=== PATIENT | male | born 1950 | race Caucasian/White ===

== ENCOUNTER → 2017-10-30 | Outpatient (CLI) | payer OTHER, SELFPAY ==
[~2017-10-30] MED LIST: ALBUTEROL2.5 MG/31 INH; ASPIR 8181 M1 PO; ASPIR 8181 MG PO; ATIVAN0.5 MG PO; CARVEDILOL3.125 MG PO; CLARITIN10 MG PO; DALIRESP500 MCG PO; GABAPENTIN 100100 MG PO; IPRAT-ALBUT 0.5-3 ML INH; LASIX 40 MG TAB40 M2 PO; LEVAQUIN 500 M500 M2 PO; LEVAQUIN 750 M750 MG PO; LEVEMIR SUBQ; LEVOTHYROXIN0.075 MG PO; LEXAPRO20 MG PO; LIPITOR40 MG PO; LISINOPRIL5 MG PO; MUCINEX600 MG PO; NICOTINE TRANSD21 M1 TOP; OLANZAPINE7.5 MG PO; PAROXETINE HCL40 MG PO; PAXIL10 MG PO; PREDNISONE 10 M10 MG PO; ROXICODONE5 M2 PO; SINEMET 25-1001 EAC1 PO; SINGULAIR 10 MG10 M1 PO; SINGULAIR 10 MG10 MG PO; SPIRIVA INH; SYMBICORT80 MCG/4.1 INH; VENTOLIN HFA 1818 GM INH; WELLBUTRIN SR150 MG PO; WELLBUTRIN XL300 MG PO; ZITHROMAX500 MG PO
[2017-10-30 15:04] LABS: ANION GAP 9 mmol/L (7-16); BUN 21 mg/dL (7-18); CALCIUM 8.7 mg/dL (8.5-10.1); CHLORIDE 105 mmol/L (98-107); CO2 28 mmol/L (21-32); CREATININE 1.3 mg/dL (0.6-1.3); GLUCOSE 104 mg/dL (70-99); POTASSIUM 4.1 mmol/L (3.5-5.1); SODIUM 142 mmol/L (136-145)
[2017-10-30 15:12] LABS: ALBUMIN 3.4 g/dL (3.4-5.0); ALKALINE PHOSPHATASE 95 U/L (46-116); SGOT 14 U/L (15-37); SGPT 20 U/L (30-65); TOTAL BILIRUBIN 0.2 mg/dL (<0.1-1.0); TOTAL PROTEIN 7.2 g/dL (6.4-8.2); TROPONIN-I LEVEL <0.06 ng/mL (<0.06)
== END ==
LOC: M.LAB 14:34
PROVIDERS: Family Medicine
DX: R94.31 Abnormal electrocardiogram [ECG] [EKG] (principal)

== ENCOUNTER 2017-11-04 08:09 | Inpatient (IN) | payer OTHER ==
[~2017-11-04] VITALS: Ht 167.6 cm; Wt 78.5 kg
[~2017-11-04 08:09] MED LIST changes: -ALBUTEROL2.5 MG/31 INH; -ASPIR 8181 MG PO; -CARVEDILOL3.125 MG PO; -DALIRESP500 MCG PO; -IPRAT-ALBUT 0.5-3 ML INH; -LASIX 40 MG TAB40 M2 PO; -LEVAQUIN 750 M750 MG PO; -LISINOPRIL5 MG PO; -MUCINEX600 MG PO; -PAROXETINE HCL40 MG PO; -SINGULAIR 10 MG10 MG PO; -WELLBUTRIN XL300 MG PO; -ZITHROMAX500 MG PO
[2017-11-04 08:12] VITALS: BP 133/92
[2017-11-04] MEDS ORDERED: WELLBUTRIN XL300 MG PO (08:26)
[2017-11-04] MEDS ORDERED: OLANZAPINE7.5 MG PO (08:26)
[2017-11-04] MEDS ORDERED: CLARITIN10 MG PO (08:26)
[2017-11-04] MEDS ORDERED: SYMBICORT80 MCG/4.1 INH (08:27)
[2017-11-04] MEDS ORDERED: PAROXETINE HCL40 MG PO (08:27)
[2017-11-04] MEDS ORDERED: VENTOLIN HFA 1818 GM INH (08:28)
[2017-11-04] MEDS ORDERED: ALBUTEROL2.5 MG/31 INH (08:29)
[2017-11-04] MEDS ORDERED: SPIRIVA INH (08:29)
[2017-11-04] MEDS ORDERED: SINGULAIR 10 MG10 MG PO (08:30)
[2017-11-04 08:50] LABS: ABSOLUTE BASOPHILS 0.1 thou/uL (0.0-0.2); ABSOLUTE EOSINOPHILS 0.1 thou/uL (0.0-0.7); ABSOLUTE LYMPHOCYTES 1.1 thou/uL (0.8-5.3); ABSOLUTE MONOCYTES 0.5 thou/uL (0.0-1.2); ABSOLUTE NEUTROPHILS 7.5 thou/uL (1.6-8.1); BASOPHILS 1.1 %; EOSINOPHILS 0.6 %; HEMOGLOBIN 13.7 gm/dL (14.0-18.0); LYMPHOCYTES 11.6 %; MCH 29.8 pg (26.0-34.0); MCHC 33.3 g/dL (28.0-37.0); MCV 89.3 fL (80.0-100.0); MONOCYTES 5.2 %; MPV 8.8 fl. (7.2-11.1); NUCLEATED RBCS 0 /100WBC; PLATELET COUNT* 284 thou/uL (150-400); POLYS 81.5 %; RBC 4.59 mil/uL (4.50-6.00); RDW-CV 15.1 % (10.5-14.5); WBC 9.2 thou/uL (4.0-11.0)
[2017-11-04 08:57] LABS: INR 1.1; PROTIME 10.8 Seconds (9.20-11.50)
[2017-11-04 08:58] LABS: ANION GAP 7 mmol/L (7-16); BUN 15 mg/dL (7-18); CALCIUM 8.7 mg/dL (8.5-10.1); CHLORIDE 107 mmol/L (98-107); CO2 28 mmol/L (21-32); CREATININE 1.2 mg/dL (0.6-1.3); GLUCOSE 111 mg/dL (70-99); POTASSIUM 4.2 mmol/L (3.5-5.1); SODIUM 142 mmol/L (136-145)
[2017-11-04 09:08] LABS: ALBUMIN 3.4 g/dL (3.4-5.0); ALKALINE PHOSPHATASE 99 U/L (46-116); LIPASE 116 U/L (73-393); NT-PRO BRAIN NAT PEPTIDE 2860 pg/mL (<300); SGOT 20 U/L (15-37); SGPT 30 U/L (30-65); TOTAL BILIRUBIN 0.4 mg/dL (<0.1-1.0); TOTAL PROTEIN 7.2 g/dL (6.4-8.2); TROPONIN-I LEVEL <0.06 ng/mL (<0.06)
[2017-11-04 10:49] LABS: INFLUENZA A ANTIGEN None Detected (None Detect); INFLUENZA B ANTIGEN None Detected (None Detect)
[2017-11-04 11:30] VITALS: BP 130/86
[2017-11-04 11:32] VITALS: BP 133/92
[2017-11-04 13:50] LABS: BE -2.2 mmol/L (-2 to +3); HCO3 21.6 mmol/L (22.0-26.0); PCO2 34.5 mmHg (35.0-45.0); pH 7.415 (7.340-7.450)
--- NOTE | 2017-11-04 16:06 | 2DMMODE ---
[place] [address] 2 D/M-MODE ECHOCARDIOGRAM Name: ANDREW MCCARTY Room: [address] IN [facility]#: [id number] Admission: 11/04/17 Attend Phys: Erasmo Staton, Discharge: Date of : 50 Date of Service: 11/04/17 1606 Report #: [id number] THIS REPORT FOR: //name// APPROVED REPORT Study performed: 11/04/2017 12:28:57 EXAM: Comprehensive 2D, Doppler, and color-flow Echocardiogram Patient Location: In-Patient Room #: [facility] Status: routine BSA: 1.88 HR: 107 bpm BP: 133/92 mmHg Rhythm: NSR Other Information Study Quality: Good Indications Congestive Heart Failure 2D Dimensions LVEF(%): 41.97 (>50%) IVSd: 12.08 (7-11mm) LVOT Diam: 21.21 (18-24mm) LVDd: 62.13 mm PWd: 10.01 (7-11mm) Ascending Ao: 36.06 (22-36mm) LVDs: 49.06 (25-40mm) Aortic Root: 39.00 mm Doll's LVEF: 41.97 % Volumes Left Atrial Volume (Systole) LA ESV Index: 33.50 mL/m2 Aortic Valve AoV Peak Niko.: 1.34 m/s AO Peak Gr.: 7.16 mmHg LVOT Max P.14 mmHg AO Mean Gr.: 4.48 mmHg LVOT Mean P.98 mmHg LVOT Max V: 1.02 m/s AO V2 VTI: 21.46 cm LVOT Mean V: 0.64 m/s KEYA (VTI): 2.79 cm2 LVOT V1 VTI: 16.95 cm Mitral Valve E/A Ratio: 1.07 [place] [address] 2 D/M-MODE ECHOCARDIOGRAM Name: ANDREW MCCARTY Room: [address] IN [facility]#: [id number] Admission: 11/04/17 Attend Phys: Erasmo Staton, Discharge: Date of : 50 Date of Service: 11/04/17 1606 Report #: [id number] MV Decel. Time: 240.59 ms MV E Max Niko.: 1.16 m/s MV PHT: 69.77 ms MVA (PHT): 3.15 cm2 TDI E/Lateral E': 8.92 E/Medial E': 12.89 Medial E' Niko.: 0.09 m/s Lateral E' Niko.: 0.13 m/s Pulmonary Valve PV Peak Niko.: 0.78 m/s PV Peak Gr.: 2.45 mmHg Left Ventricle The left ventricle is normal size. There is moderate global hypokinesis Mild concentric left ventricular hypertrophy. Left ventricular systolic function is moderately decreased. LVEF is 30-35%. Transmitral Doppler flow pattern suggests impaired LV relaxation. Right Ventricle The right ventricle is normal size. The right ventricular systolic function is normal. Atria Left atrium is mildly dilated. The right atrium size is normal. Aortic Valve The aortic valve is normal in structure. No aortic regurgitation is present. There is no aortic valvular stenosis. Mitral Valve The mitral valve is normal in structure. Moderate mitral regurgitation. No evidence of mitral valve stenosis. Tricuspid Valve The tricuspid valve is normal in structure. Unable to assess PA pressure. Trace tricuspid regurgitation. Pulmonic Valve The pulmonary valve is normal in structure. There is no pulmonic valvular regurgitation. Great Vessels The aortic root is normal in size. IVC is [place] [address] 2 D/M-MODE ECHOCARDIOGRAM Name: ANDREW MCCARTY Hubert Room: [address] IN [facility]#: [id number] Admission: 11/04/17 Attend Phys: Erasmo Staton, Discharge: Date of : 50 Date of Service: 11/04/17 1606 Report #: [id number] collapses with >50% inspiration Pericardium There is no pericardial effusion. <Conclusion> The left ventricle is normal size. Mild concentric left ventricular hypertrophy. Left ventricular systolic function is moderately decreased. LVEF is 30-35%. Transmitral Doppler flow pattern suggests impaired LV relaxation. There is moderate global hypokinesis Left atrium is mildly dilated. Moderate mitral regurgitation. <ELECTRONICALLY SIGNED> By: Arben Bolaños MD, FACC 11/04/17 1606 1606 1606 Arben Bolaños MD, FACC /INF
--- NOTE | 2017-11-04 16:35 | EKG ---
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 : 1950 Requested By: Deondre Hood Order Number: [id number] MD: Arben Bolaños Measurements Intervals [place] Rate: 98 P: 60 [place]: 167 QRS: 34 QRSD: 94 T: 55 QT: 343 QTc: 438 Interpretive Statements Sinus rhythm Possible left atrial enlargement Nonspecific T abnormalities, lateral leads Compared to ECG 02/09/2016 14:48:54 T-wave abnormality now present Sinus tachycardia no longer present Electronically Signed On 11-04-2017 16:35:41 ENGINEERING COORDINATOR by Arben Bolaños [email or web address] <ELECTRONICALLY SIGNED> By: Arben Bolaños MD, FACC 11/04/17 1635 0815 Arben Bolaños MD, FAC /EPI
[2017-11-04 17:18] VITALS: BP 135/86
[2017-11-04 22:39] VITALS: BP 115/69
[2017-11-05 05:23] LABS: HEMOGLOBIN 13.3 gm/dL (14.0-18.0); MCH 30.1 pg (26.0-34.0); MCHC 33.2 g/dL (28.0-37.0); MCV 90.7 fL (80.0-100.0); MPV 9.1 fl. (7.2-11.1); NUCLEATED RBCS 0 /100WBC; PLATELET COUNT* 299 thou/uL (150-400); RBC 4.42 mil/uL (4.50-6.00)
[2017-11-05 05:43] LABS: ANION GAP 14 mmol/L (7-16); BUN 27 mg/dL (7-18); CALCIUM 8.7 mg/dL (8.5-10.1); CHLORIDE 105 mmol/L (98-107); CO2 22 mmol/L (21-32); CREATININE 1.7 mg/dL (0.6-1.3); GLUCOSE 171 mg/dL (70-99); NT-PRO BRAIN NAT PEPTIDE 6005 pg/mL (<300); POTASSIUM 4.9 mmol/L (3.5-5.1); SODIUM 141 mmol/L (136-145); TROPONIN-I LEVEL <0.06 ng/mL (<0.06)
[2017-11-05 06:33] LABS: ABSOLUTE LYMPHOCYTES 1.2 thou/uL (0.8-5.3); ABSOLUTE MONOCYTES 0.2 thou/uL (0.0-1.2); ABSOLUTE NEUTROPHILS 10.6 thou/uL (1.6-8.1); PLATELET ESTIMATE ADEQUATE
[2017-11-05 07:30] VITALS: BP 145/86
[2017-11-05 15:56] VITALS: BP 164/89
[2017-11-06 04:35] LABS: ABSOLUTE LYMPHOCYTES 0.6 thou/uL (0.8-5.3); ABSOLUTE MONOCYTES 0.3 thou/uL (0.0-1.2); ABSOLUTE NEUTROPHILS 15.4 thou/uL (1.6-8.1); BASOPHILS 0.2 %; HEMATOCRIT 38.6 % (42.0-52.0); HEMOGLOBIN 12.6 gm/dL (14.0-18.0); LYMPHOCYTES 3.9 %; MCH 29.5 pg (26.0-34.0); MCHC 32.6 g/dL (28.0-37.0); MCV 90.5 fL (80.0-100.0); MONOCYTES 1.9 %; MPV 9.2 fl. (7.2-11.1); NUCLEATED RBCS 0 /100WBC; PLATELET COUNT* 296 thou/uL (150-400); RBC 4.27 mil/uL (4.50-6.00); RDW-CV 15.1 % (10.5-14.5); WBC 16.3 thou/uL (4.0-11.0)
[2017-11-06 05:06] LABS: ALBUMIN 3.3 g/dL (3.4-5.0); ALKALINE PHOSPHATASE 86 U/L (46-116); ANION GAP 7 mmol/L (7-16); BUN 42 mg/dL (7-18); CALCIUM 8.4 mg/dL (8.5-10.1); CHLORIDE 104 mmol/L (98-107); CO2 28 mmol/L (21-32); CREATININE 1.9 mg/dL (0.6-1.3); GLUCOSE 147 mg/dL (70-99); POTASSIUM 5.2 mmol/L (3.5-5.1); SGOT 35 U/L (15-37); SGPT 49 U/L (30-65); SODIUM 139 mmol/L (136-145); TOTAL BILIRUBIN 0.3 mg/dL (<0.1-1.0); TOTAL PROTEIN 6.8 g/dL (6.4-8.2)
[2017-11-06 05:36] LABS: CHOLESTEROL 252 mg/dL (<200); HDL CHOLESTEROL 52 mg/dL (>40); LDL CHOLESTEROL 185 mg/dL (<100); SERUM ASSESSMENT Clear; TC:HDL 4.8 Ratio (Not establshd); TRIGLYCERIDE 79 mg/dL (<150); VLDL 16 mg/dL (<40)
[2017-11-06 08:05] VITALS: BP 135/93
[2017-11-06 16:04] VITALS: BP 121/86
--- NOTE | 2017-11-06 17:48 | CON ---
[address] [address] CONSULTATION Name: ANDREW MCCARTY Room: [address] IN .R.#: [id number] Admission: 11/04/17 Attend Phys: Erasmo Staton MD Discharge: Date of : 50 Report #: [id number] THIS REPORT FOR: //name// CC: Erasmo Lee DO DATE OF SERVICE: 11/05/2017 CARDIOLOGY CONSULTATION HISTORY OF PRESENT ILLNESS: The patient is a 67-year-old white male with COPD, who I was asked to see in the hospital after he complained of being short of breath. The patient has been a smoker for years, previously 2 packs of cigarettes a day. He is now down to less than 1/2 pack of cigarettes a day. He continues to smoke, has chronic cough, chronic shortness of breath and is on oxygen and nebulizer at home. He has no history of heart disease. He states he did have a treadmill about 2 years ago at [facility]. He was actually admitted here to [place] in 2016 with shortness of breath and a cough. The patient states that he has now been short of breath for the past week. He has been coughing, running a fever, could not sleep at night. He has been using his nebulizer and oxygen. He has also had some chest numbness. He feels fatigued, lightheaded. He has had no syncope. Finally, he came to the hospital yesterday and was admitted. PAST MEDICAL HISTORY: Significant for hemorrhoid surgery, all of his teeth have been removed. No history of hypertension, diabetes, hyperlipidemia. He has a history of depression, has been on antipsychotic medications in the past. MEDICATIONS: His current medications at home consists of ___loratadine, Wellbutrin, Paxil, Symbicort, Ventolin, DuoNeb treatments, Spiriva, Singulair. He previous was on Lipitor. ALLERGIES: He has no known drug allergies. FAMILY HISTORY: He did not know his family history. SOCIAL HISTORY: He is . 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 He used to drink heavily, no longer drinks alcohol. REVIEW OF SYSTEMS: No history of stroke. He has had a peptic ulcer years ago. No history of liver disease, kidney disease, cancer or chronic skin condition. PHYSICAL EXAMINATION: GENERAL: Revealed a middle-aged male, appeared in mild respiratory distress, [place] [address] CONSULTATION Name: ANDREW MCCARTY Room: [address]#: [id number] Admission: 11/04/17 Attend Phys: Erasmo Staton MD Discharge: Date of : 50 Report #: [id number] VITAL SIGNS: Blood pressure 130/70, pulse is 90, he is afebrile. HEENT: He was anicteric. Conjunctivae pink. Mucous members moist. NECK: Neck veins nondistended. No carotid bruits. Neck supple. CHEST: Revealed expiratory wheezes bilaterally. CARDIOVASCULAR: Distant heart sounds, regular rate and rhythm. No significant murmur. ABDOMEN: Soft. EXTREMITIES: Had no edema. Dorsalis pedis pulse 1+ bilaterally. SKIN: Cool and dry. NEUROLOGIC: Nonfocal. LYMPH: No adenopathy. MUSCULOSKELETAL: No joint effusion. His ECG on admission yesterday showed a sinus rhythm, nonspecific T-wave changes. He had an echocardiogram done yesterday that showed left ventricular hypertrophy, ejection fraction 35%, left atrial enlargement, moderate mitral regurgitation. His x-rays, he had a portable chest x-ray on admission yesterday that showed cardiomegaly, left lower lobe infiltrate, mild interstitial infiltrates suggestive of edema. LABORATORY WORK: Sodium 141, BUN 27, creatinine 1.7, glucose 171. Liver function studies were normal. Troponin 0.06. BNP 6005. TSH 7.2. White blood cell count 12.0, hemoglobin 13.3. IMPRESSION AND RECOMMENDATIONS: 1. Chronic obstructive pulmonary disease. 2. Tobacco abuse. 3. Cardiomyopathy, reason unclear. No evidence of ischemia. Recommend beta-john, ROSALIE, Aldactone and Lasix. 4. Tobacco abuse. 5. Previous history of alcohol abuse. 6. History of depression. 7. Chronic kidney disease. <ELECTRONICALLY SIGNED> By: Steve Brown MD, [facility] 11/06/17 1748 1312 [id number] Brown MD, [facility] /nt
[2017-11-06 20:00] VITALS: BP 130/91
[2017-11-07 00:07] VITALS: BP 150/90
[2017-11-07 07:50] VITALS: BP 136/83
[2017-11-07 10:46] VITALS: BP 136/83
[2017-11-07 15:27] VITALS: BP 136/83
[2017-11-07 15:34] VITALS: BP 167/79
[2017-11-07 20:20] VITALS: BP 146/100
[2017-11-08 06:16] LABS: HEMATOCRIT 37.3 % (42.0-52.0); HEMOGLOBIN 12.2 gm/dL (14.0-18.0); MCH 29.7 pg (26.0-34.0); MCHC 32.7 g/dL (28.0-37.0); MCV 90.7 fL (80.0-100.0); MPV 9.3 fl. (7.2-11.1); RBC 4.11 mil/uL (4.50-6.00); RDW-CV 14.9 % (10.5-14.5); WBC 11.5 thou/uL (4.0-11.0)
[2017-11-08 07:30] VITALS: BP 127/85
[2017-11-08 08:35] VITALS: BP 136/83
[2017-11-08] MEDS ORDERED: LISINOPRIL5 MG PO (12:35)
[2017-11-08] MEDS ORDERED: LASIX 40 MG TAB40 M2 PO (12:36)
[2017-11-08] MEDS ORDERED: CARVEDILOL3.125 MG PO (12:36)
[2017-11-08 16:00] VITALS: BP 125/97
[2017-11-08 20:15] VITALS: BP 128/82
[2017-11-09 00:42] VITALS: BP 130/92
[2017-11-09 08:30] VITALS: BP 124/91
[2017-11-09 08:37] VITALS: BP 124/91
[2017-11-09] MEDS ORDERED: PREDNISONE 10 M10 MG PO (15:44)
[2017-11-09] MEDS ORDERED: ZITHROMAX500 MG PO (15:45)
== END 2017-11-09 16:12 | disposition home or self-care (01) | DRG 177 ==
LOC: M.ERS 08:09 → M.3W 09:28 → M.TBA-ER 09:28 → M.3W 11:20
PROVIDERS: Emergency Medicine; Internal Medicine; ADMIT Internal Medicine
PROC: B24BZZ4 Ultrasonography of Heart with Aorta, Transesophageal (ICD-10-PCS; principal; 2017-11-04)
DX: J69.0 Pneumonitis due to inhalation of food and vomit (principal); J96.20 Acute and chronic respiratory failure, unspecified whether with hypoxia or hypercapnia; J44.1 Chronic obstructive pulmonary disease with (acute) exacerbation; I42.9 Cardiomyopathy, unspecified; J44.0 Chronic obstructive pulmonary disease with (acute) lower respiratory infection; J15.6 Pneumonia due to other Gram-negative bacteria; N18.9 Chronic kidney disease, unspecified; F32.9 Major depressive disorder, single episode, unspecified; F41.9 Anxiety disorder, unspecified; E03.9 Hypothyroidism, unspecified; F17.210 Nicotine dependence, cigarettes, uncomplicated; E78.00 Pure hypercholesterolemia, unspecified; E87.5 Hyperkalemia; Z79.899 Other long term (current) drug therapy

== ENCOUNTER → 2017-12-02 | Outpatient (CLI) | payer OTHER ==
[~2017-12-02] MED LIST changes: +ALBUTEROL2.5 MG/31 INH; +ASPIR 8181 MG PO; +CARVEDILOL3.125 MG PO; +DALIRESP500 MCG PO; +IPRAT-ALBUT 0.5-3 ML INH; +LASIX 40 MG TAB40 M2 PO; +LEVAQUIN 750 M750 MG PO; +LISINOPRIL5 MG PO; +MUCINEX600 MG PO; +PAROXETINE HCL40 MG PO; +SINGULAIR 10 MG10 MG PO; +WELLBUTRIN XL300 MG PO; +ZITHROMAX500 MG PO
== END ==
LOC: M.RAD 09:27
DX: J18.9 Pneumonia, unspecified organism (principal); Z86.79 Personal history of other diseases of the circulatory system

== ENCOUNTER 2018-07-16 14:00 | Inpatient (IN) | payer OTHER ==
[~2018-07-16] VITALS: Ht 172.7 cm; Wt 77.1 kg
[~2018-07-16 14:00] MED LIST changes: -ASPIR 8181 MG PO; -DALIRESP500 MCG PO; -IPRAT-ALBUT 0.5-3 ML INH; -LEVAQUIN 750 M750 MG PO; -MUCINEX600 MG PO
[2018-07-16 14:12] VITALS: BP 78/57
[2018-07-16] MEDS ORDERED: ASPIR 8181 MG PO (14:17)
[2018-07-16 14:23] LABS: HEMATOCRIT 42.1 % (42.0-52.0); HEMOGLOBIN 13.8 gm/dL (14.0-18.0); MCH 30.8 pg (26.0-34.0); MCHC 32.8 g/dL (28.0-37.0); MPV 8.4 fl. (7.2-11.1); NUCLEATED RBCS 0 /100WBC; PLATELET COUNT* 349 thou/uL (150-400); RBC 4.47 mil/uL (4.50-6.00); RDW-CV 14.8 % (10.5-14.5); WBC 20.9 thou/uL (4.0-11.0)
[2018-07-16 14:33] LABS: APTT 25.9 Seconds (25.0-31.3); PROTIME 9.8 Seconds (9.20-11.50)
[2018-07-16 14:40] LABS: ANION GAP 9 mmol/L (7-16); BUN 21 mg/dL (7-18); CALCIUM 8.9 mg/dL (8.5-10.1); CHLORIDE 98 mmol/L (98-107); CO2 30 mmol/L (21-32); CREATININE 1.3 mg/dL (0.6-1.3); GLUCOSE 102 mg/dL (70-99); POTASSIUM 4.4 mmol/L (3.5-5.1); SODIUM 137 mmol/L (136-145)
[2018-07-16 14:54] LABS: ALKALINE PHOSPHATASE 71 U/L (46-116); LIPASE 229 U/L (73-393); MAGNESIUM 2.1 mg/dL (1.8-2.4); NT-PRO BRAIN NAT PEPTIDE 7717 pg/mL (<300); SGOT 33 U/L (15-37); SGPT 47 U/L (30-65); TOTAL BILIRUBIN 0.4 mg/dL (<0.1-1.0); TOTAL PROTEIN 6.6 g/dL (6.4-8.2); TROPONIN-I LEVEL <0.06 ng/mL (<0.06)
[2018-07-16 15:07] LABS: ABSOLUTE LYMPHOCYTES 0.2 thou/uL (0.8-5.3); ABSOLUTE NEUTROPHILS 19.6 thou/uL (1.6-8.1); PLATELET ESTIMATE ADEQUATE
[2018-07-16 16:47] VITALS: BP 98/48
[2018-07-16 17:17] VITALS: BP 113/79
--- NOTE | 2018-07-16 17:35 | EKG ---
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: Jammie JEAN : 1950 Requested By: Cuco Hyman Order Number: [id number] MD: Arben Bolaños Measurements Intervals [place] Rate: 85 P: 21 FL: 148 QRS: -11 QRSD: 92 T: 150 QT: 390 QTc: 464 Interpretive Statements Sinus rhythm Probable left atrial enlargement LVH with secondary repolarization abnormality Compared to ECG 11/04/2017 08:15:37 Left ventricular hypertrophy now present Early repolarization now present T-wave abnormality no longer present Electronically Signed On 07-16-2018 17:35:15 STUNT DOUBLE by Arben Bolaños [email or web address] <ELECTRONICALLY SIGNED> By: Arben Bolaños MD, FACC 07/16/18 1735 1404 1404 Arben Bolaños MD, FAC /EPI
[2018-07-16 20:00] VITALS: BP 102/65
[2018-07-17] VITALS: BP 135/78
--- NOTE | 2018-07-17 03:25 | NUR ---
ASSUMED PT CARE AT 1930. ASSESSMENT COMPLETED CHARTED. ABLE TO MAKE NEEDS KNOWN. 4L O2 NC ON LIKE AT HOME. NO C/O PAIN OR DISCOMFORT. C/O SOA ON EXCERTION. UP AD NAVID. INCREASED APPITITE DUE TO P.O. OF IV STERIODS. WILL CONTINUE TO MONITOR.
[2018-07-17 04:00] VITALS: BP 136/73
[2018-07-17 05:00] LABS: HEMATOCRIT 35.1 % (42.0-52.0); MCH 31.5 pg (26.0-34.0); MCV 95.2 fL (80.0-100.0); MPV 8.6 fl. (7.2-11.1); RBC 3.69 mil/uL (4.50-6.00); RDW-CV 14.5 % (10.5-14.5); WBC 14.6 thou/uL (4.0-11.0)
[2018-07-17 05:05] LABS: HEMOGLOBIN 11.6 gm/dL (14.0-18.0)
[2018-07-17 08:15] VITALS: BP 155/85
--- NOTE | 2018-07-17 08:15 | NUR ---
ASSUMED PT. CARE AND RECEIVED REPORT AT 0730. PT A/OX4, VSS, MONITOR ON TRACING SR. PT. DENIES CURRENT PAIN. ON 4L NC @ 97%. PT. REPORTS IMPROVEMENT IN SOB/WHEEZING SINCE YESTERDAY. FULL ASSESSMENT COMPLETED, REFER TO CHARTING. CALL LIGHT IN REACH, WILL CONTINUE WITH PLAN OF CARE.
[2018-07-17 08:33] LABS: CALCIUM 8.9 mg/dL (8.5-10.1); CREATININE 1.3 mg/dL (0.6-1.3); MAGNESIUM 2.1 mg/dL (1.8-2.4); POTASSIUM 4.4 mmol/L (3.5-5.1)
[2018-07-17 10:14] LABS: BE -1.4 mmol/L (-2 to +3); HCO3 22.3 mmol/L (22.0-26.0); PO2 84.5 mmHg (75.0-100.0); pH 7.434 (7.340-7.450)
--- NOTE | 2018-07-17 11:57 | NUR ---
MET WITH PT TO DISCUSS HOME SITUAION/DC PLANNING. PT LIVES WITH , SON AND GREAT GRANDDTR (2Y/O) PRO SHOP ATTENDANT. PT USES O2 AT 4L AND NEBULIZER THRU [facility]. HAD RECENT HOSPITAL STAY AT [facility], NOW READMITTED WITH HEART FAILURE. PT STATES HE NEEDS MORE HELP 'TO KNOW HOW TO BREATHE BETTER' AND JUST GO HOME. HE DENIES HAVING A DPOA, STATES HIS KNOWS HIS WISHES, DOESN'T WANT TO FILL OUT DPOA. REF FOR [facility]ALLIATIVE CARE RECEIVED. TALKED WITH PT ABOUT PALLIATIVE CARE AND HOSPICE, HE IS INTERESTED IN PC BUT AGAIN STATES, 'I JUST NEED THEM TO TELL ME WHAT TO DO AND GO AWAY.' ENCOURAGED HIM TO CONSIDER HH AND PC, HE STATED HE WOULD. OPTIONS GIVEN, AGREEABLE TO MEET WITH [facility] AND TO HAVE [facility] [place]. CALLED AND FAXED REF TO [facility]. SOMEONE FROM THE PALLIATIVE CARE TEAM WILL COME OUT TO TALK WITH PT. ALSO FAXED REFERRAL TO [facility]. WILL FOLLOW
[2018-07-17 12:00] VITALS: BP 132/78; BP 155/85
--- NOTE | 2018-07-17 12:49 | 2DMMODE ---
[place] [address] 2 D/M-MODE ECHOCARDIOGRAM Name: ANDREW MCCARTY Room: [address] IN [facility]#: [id number] Admission: 07/16/18 Attend Phys: Sergio Campo, Discharge: Date of : 50 Date of Service: 07/17/18 1249 Report #: [id number] THIS REPORT FOR: //name// APPROVED REPORT Study performed: 07/17/2018 11:14:12 EXAM: Comprehensive 2D, Doppler, and color-flow Echocardiogram Patient Location: In-Patient Room #: [facility] Status: routine BSA: 1.84 HR: 83 bpm BP: 155/85 mmHg Rhythm: NSR Other Information Study Quality: Good Indications CAD 2D Dimensions IVSd: 11.67 (7-11mm) LVOT Diam: 24.34 (18-24mm) LVDd: 52.42 mm PWd: 13.02 (7-11mm) Ascending Ao: 33.47 (22-36mm) LVDs: 38.91 (25-40mm) Aortic Root: 40.39 mm Volumes Left Atrial Volume (Systole) LA ESV Index: 39.20 mL/m2 Aortic Valve AoV Peak Niko.: 1.30 m/s AO Peak Gr.: 6.78 mmHg LVOT Max P.02 mmHg AO Mean Gr.: 4.26 mmHg LVOT Mean P.51 mmHg LVOT Max V: 0.87 m/s AO V2 VTI: 22.90 cm LVOT Mean V: 0.57 m/s KEYA (VTI): 3.27 cm2 LVOT V1 VTI: 16.07 cm Mitral Valve E/A Ratio: 0.69 MV Decel. Time: 234.13 ms MV E Max Niko.: 0.77 m/[place] [address] 2 D/M-MODE ECHOCARDIOGRAM Name: ANDREW MCCARTY Room: [address] IN [facility]#: [id number] Admission: 07/16/18 Attend Phys: Sergio Campo, Discharge: Date of : 50 Date of Service: 07/17/18 1249 Report #: [id number] MV PHT: 67.90 ms MVA (PHT): 3.24 cm2 TDI E/Lateral E': 5.92 E/Medial E': 9.63 Medial E' Niko.: 0.08 m/s Lateral E' Niko.: 0.13 m/s Pulmonary Valve PV Peak Niko.: 0.86 m/s PV Peak Gr.: 2.95 mmHg Left Ventricle Left ventricle is mildly dilated. There is global hypokinesis of the left ventricle. Mild concentric left ventricular hypertrophy. Left ventricular systolic function is severely decreased. LVEF is 25-30%. Grade I - abnormal relaxation pattern. Right Ventricle The right ventricle is normal size. The right ventricular systolic function is normal. Atria Left atrium is mildly dilated. The right atrium size is normal. Aortic Valve The Aortic valve is sclerotic. No aortic regurgitation is present. There is no aortic valvular stenosis. Mitral Valve The mitral valve is normal in structure. Trace mitral regurgitation. No evidence of mitral valve stenosis. Tricuspid Valve The tricuspid valve is normal in structure. There is no tricuspid valve regurgitation noted. Pulmonic Valve Pulmonic valve is not well visualized. There is no pulmonic valvular regurgitation. Great Vessels The aortic root is normal in size. IVC is normal in size and collapses >50% [place] [address] 2 D/M-MODE ECHOCARDIOGRAM Name: ANDREW MCCARTY Room: [address]#: [id number] Admission: 07/16/18 Attend Phys: Sergio Campo, Discharge: Date of : 50 Date of Service: 07/17/18 1249 Report #: [id number] There is no pericardial effusion. <Conclusion> LVEF is 25-30%. Mild concentric left ventricular hypertrophy. Left atrium is mildly dilated. Trace mitral regurgitation. <ELECTRONICALLY SIGNED> By: Steve Brown MD, FACC 07/17/18 1249 1249 1249 Steve Brown MD, FAC /INF
[2018-07-17 15:56] VITALS: BP 134/78
--- NOTE | 2018-07-17 18:07 | NUR ---
PT. STABLE THROUGH OUT SHIFT. REMAINS ON 4L NC. PALLATIVE CARE RN INTO SEE PT PER ORDERS. PT. DID NOT FEEL LIKE TALKING WITH HER TODAY AND WITHOUT HIS . RN AND PT. WILL BE HERE TOMORROW AT 1100 TO MEET. PT. CONTIUES TO HAVE GOOD APPETITE AND EATING SNACKS BETWEEN MEALS. NO NEW COMPLAINTS THIS SHIFT. HOURLY ROUNDING COMPLETED THROUGH OUT THE DAY FOR PT. SAFETY.
[2018-07-17 20:00] VITALS: BP 131/74
[2018-07-18] VITALS (7 sets, daily range): BP systolic 103–139; BP diastolic 53–98
--- NOTE | 2018-07-18 03:31 | NUR ---
ASSUMED PT CARE AT 1930. ASSESSMENT COMPLETED CHARTED. ABLE TO MAKE NEEDS KNOWN. PT ON 4L O2, UP AD NAVID, NO C/O PAIN OR DISCOMFORT. SOA SEEMING BETTER PER PT. PT RESTING IN BED AT THIS TIME. NO NEED FOR PRN BREATHING TX. WILL CONTINUE TO MONITOR.
[2018-07-18 04:43] LABS: HEMATOCRIT 33.9 % (42.0-52.0); HEMOGLOBIN 11.1 gm/dL (14.0-18.0); MCH 31.7 pg (26.0-34.0); MCHC 32.9 g/dL (28.0-37.0); MCV 96.4 fL (80.0-100.0); MPV 8.7 fl. (7.2-11.1); RBC 3.52 mil/uL (4.50-6.00); RDW-CV 14.9 % (10.5-14.5); WBC 19.4 thou/uL (4.0-11.0)
[2018-07-18 04:58] LABS: CALCIUM 9.1 mg/dL (8.5-10.1); CREATININE 1.5 mg/dL (0.6-1.3); MAGNESIUM 2.3 mg/dL (1.8-2.4); POTASSIUM 3.7 mmol/L (3.5-5.1)
--- NOTE | 2018-07-18 08:06 | NUR ---
ASSUMED PT. CARE AND RECEIVED REPORT AT 0730. PT A/OX4, VSS, MONITOR ON TRACING SR. ON 4L NC AT 97% PT. DENIES ANY NEW CONCERNS THIS MORNING. STATES HE IS FEELING "ABOUT THE SAME" YESTERDAY, ALTHOUGH HE IS CONCERNED HE IS CRAVING A CIGARETTE THIS MORNING. FULL ASSESSMENT COMPLETED, REFER TO CHARTING. CALL LIGHT IN REACH, WILL CONTINUE WITH PLAN OF CARE.
[2018-07-19 04:00] VITALS: BP 123/74
[2018-07-19 04:32] LABS: HEMATOCRIT 30.7 % (42.0-52.0); HEMOGLOBIN 10.2 gm/dL (14.0-18.0); MCH 31.3 pg (26.0-34.0); MCHC 33.1 g/dL (28.0-37.0); MCV 94.7 fL (80.0-100.0); MPV 8.7 fl. (7.2-11.1); RBC 3.24 mil/uL (4.50-6.00); RDW-CV 14.9 % (10.5-14.5); WBC 17.7 thou/uL (4.0-11.0)
[2018-07-19 04:41] LABS: CALCIUM 8.7 mg/dL (8.5-10.1); CREATININE 1.5 mg/dL (0.6-1.3); MAGNESIUM 2.1 mg/dL (1.8-2.4); POTASSIUM 4.5 mmol/L (3.5-5.1)
--- NOTE | 2018-07-19 05:09 | NUR ---
ASSUMED PT CARE AT 1930. ASSESSMENT COMPLETED CHARTED. ABLE TO MAKE NEEDS KNOWN. UP AD NAVID IN ROOM WITH 4L O2 ON AT ALL TIMES. NO C/O PAIN OR DISCOMFORT. SOA GOING TO AND FROM BATHROOM. BREATHING TX Q4HRS. WHEEZING IN LUNGS IS MUCH LESS PROMINENT TODAY, ONLY HEARD AT THE END OF EXPIRATION. WILL CONTINUE TO MONITOR.
--- NOTE | 2018-07-19 08:05 | CON ---
[address] [address] CONSULTATION Name: LULANDREW L Room: [address] IN [facility]#: [id number] Admission: 07/16/18 Attend Phys: Sergio Campo MD Discharge: Date of : 50 Report #: [id number] THIS REPORT FOR: //name// CC: Sergio Lee DATE OF SERVICE: 07/17/2018 REASON FOR CONSULTATION: Recurrent COPD exacerbation. HISTORY OF PRESENT ILLNESS: This is a 67-year-old male patient with history of smoking in the past. He told me he quit a couple of months ago. He is on oxygen at home already, although he is not steroid dependent. He tells me he uses oxygen regularly. He had multiple hospitalizations with COPD exacerbation. The last hospitalization was at [facility] with pneumonia and non-STEMI in addition to COPD exacerbation. He was discharged home at that time. He felt improvement at the time of discharge, but 2 days later, he started declining again with increasing shortness of breath, cough and wheezes. He did not provide specific history regarding PNDs or orthopnea. He does not see a electric tool repairer at this point; however, a few years ago, he saw a electric tool repairer in [place] and according to the patient at that time, he had severe COPD. He is not producing much sputum. He denied any sick contacts. He denied any fever, chills or sputum production. His cough is mostly dry. He tells me he is very compliant with his medication, he uses every day and actually, he was on a prednisone taper when he came in at this time. PAST MEDICAL HISTORY: Chronic respiratory failure, on home oxygen, COPD, depression, anxiety, psychosis, hypothyroidism and allergies, also he has history of congestive heart failure. His echocardiogram in October 2017 demonstrated ejection fraction of 30-35% with evidence of diastolic dysfunction. ALLERGIES: No known drug allergies. HOME MEDICATIONS: He is on aspirin, Symbicort, albuterol, Lasix. He was on tapering dose of steroids. He was on Coreg, loratadine, paroxetine, albuterol nebulization treatments, Spiriva and Singulair. SOCIAL HISTORY: He told me he quit smoking a couple of months ago. Does not drink alcohol. Does not abuse drugs. FAMILY HISTORY: Reviewed with the patient, not pertinent to the chief complaints. REVIEW OF SYSTEMS: GENERAL: He denied fever. He felt a little [place] [address] CONSULTATION Name: ANDREW MCCARTY Room: [address]#: [id number] Admission: 07/16/18 Attend Phys: Sergio Campo MD Discharge: Date of : 50 Report #: [id number]. He reports some diaphoresis. EYES: He denies vision changes, redness, cataract or lacrimation. EARS, NOSE AND THROAT: He denies sore throat, nasal discharge, obstruction, epistaxis, postnasal drip, sinus pain, difficulty swallowing or hoarseness of voice. CARDIOVASCULAR: He denied any chest pain, palpitation, lower extremity edema or varicose veins. RESPIRATORY: As above. GASTROINTESTINAL: He denies change in appetite. He had no nausea, no vomiting, no hematemesis, no rectal bleeding. No indigestion. GENITOURINARY: He denied any frequency, urgency, difficulty with urination. MUSCULOSKELETAL: He denied any stiffness, joint pain, deformities, back pain or muscle pain. SKIN: He denied any rash, lesions, lumps. NEUROLOGICAL: He denied fainting, seizures, blackouts, numbness, loss of sensation, focal weakness, balance problem. PSYCHIATRIC: He had no anxiety or insomnia or mood disorder. ENDOCRINE: He reported some heat and cold intolerance, but no night sweats. No hot flashes. The rest of the review of system was negative. PHYSICAL EXAMINATION: VITAL SIGNS: He was on 4 liters oxygen with saturation more than 90%, blood pressure 155/85, pulse rate of 88, temperature 36.3, breathing 18 times a minute. GENERAL: He is sitting in the bed. Speaks in full sentences, in no distress. HEENT: Head normocephalic, atraumatic. Pupils reactive to light. Extraocular movement intact, Mallampati 2-3. External ears look healthy and normal. NECK: Supple. No palpable lymph node, no palpable thyroid. Trachea central. CHEST: Diminished air movement bilaterally, some rhonchi at the left lung base with prolonged expiratory phase and wheezes. Symmetrical expansion and nontender. HEART: S1, S2, no murmur. ABDOMEN: Benign, soft, lax, nontender, positive bowel sounds. No masses felt. EXTREMITIES: Lower extremities, trace edema, no calf tenderness. SKIN: Normal for age and race, no rash. LYMPHATICS: No palpable lymph node. PSYCHIATRIC: Mood and affect appropriate. Good insight, judgment. NEUROLOGIC: Moving 4 extremities spontaneously. No focal weakness. LABORATORY DATA: White blood count 14.6, hemoglobin 11.6 and platelets of 268. His creatinine is 1.3, BUN 32, potassium 4.4. His BNP was elevated at 7717. INR of 1. Chest x-ray did not show acute pulmonary process, although showed chronic changes consistent with COPD. IMPRESSION: [place] [address] CONSULTATION Name: LULANDREW Hubert Room: [address] IN .R.#: [id number] Admission: 07/16/18 Attend Phys: Sergio Campo MD Discharge: Date of : 50 Report #: [id number] 1. Acute on chronic hypoxic respiratory failure. 2. Chronic obstructive pulmonary disease exacerbation. 3. Congestive heart failure with elevated beta natriuretic peptide and depressed ejection fraction. 4. History of smoking. PLAN: 1. At this point, the patient will be continued on antibiotic, IV steroids. I agree with the diuresis and keeping him negative fluid balance. He is already on Mucinex. I agree with the Brovana. I am going to increase the frequency of nebulization treatments to every 4 hours if it is not done already. 2. We will do ABGs for him. The patient with recurrent respiratory failure, likely a combination of chronic obstructive pulmonary disease and congestive heart failure. We will consider at the time of discharge keeping him on daily prednisone at least starting at 10 mg every other day for now. Also, we might trial him on Daliresp due to the frequent exacerbation of chronic obstructive pulmonary disease. Thank you for the consult. We will follow along with you. <ELECTRONICALLY SIGNED> By: Rachel Fox MD 07/19/18 0805 0934 [id number] oFx MD /christine
[2018-07-19 08:45] VITALS: BP 168/73
--- NOTE | 2018-07-19 09:11 | NUR ---
ASSUMED PT. CARE AND RECEIVED REPORT AT 0730. PT A/OX4, VSS, MONITOR ON TRACING SR. PT. DENIES CURRENT PAIN. STATES HE FEELS LIKE HIS BREATHING IS SLIGHTLY IMPROVED THIS MORNING AND HE IS NOT BECOMING SOB WITH ACTIVITY. HOWEVER AT ASSESSMENT PT. APPEARS SOB AFTER JUST WALKING TO BATHROOM. ON 4L NC @ 98%. FULL ASSESSMENT COMPLETED, REFER TO CHARTING. CALL LIGHT IN REACH, WILL CONTINUE WITH PLAN OF CARE.
[2018-07-19 11:58] VITALS: BP 150/87
[2018-07-19 15:37] VITALS: BP 142/77
[2018-07-19 20:15] VITALS: BP 146/77
[2018-07-20] VITALS: BP 121/74
[2018-07-20 04:00] VITALS: BP 132/82
--- NOTE | 2018-07-20 07:02 | NUR ---
PT IS ABLE TO COMMUNICATE HIS NEEDS TO STAFF EFFECTIVELY. HE HAS DENIED THE NEED FOR PAIN MEDICATION UP TO THIS TIME. PT TO KEEP O2 ON WHILE UP AND WALKING AROUND OR GOING TO THE BATHROOM; HAS TUBING EXTENSION ATTACHED TO NC. LIKELY ECHO LATER TODAY. POSSIBLE DISCHARGE LATER TODAY WELL.
[2018-07-20 08:00] VITALS: BP 157/93
[2018-07-20] MEDS ORDERED: MUCINEX600 MG PO (08:37)
[2018-07-20] MEDS ORDERED: LEVAQUIN 750 M750 MG PO (08:37)
[2018-07-20] MEDS ORDERED: IPRAT-ALBUT 0.5-3 ML INH (08:37)
[2018-07-20] MEDS ORDERED: DALIRESP500 MCG PO (08:37)
[2018-07-20] MEDS ORDERED: PREDNISONE 10 M10 MG PO (08:37)
--- NOTE | 2018-07-20 10:11 | NUR ---
ORDERS NOTED FOR DC HOME. MET WITH PT, HE MET WITH [facility] AND IS AGREEABLE TO THAT [facility]. CALLED AND FAXED ORDERS TO BOTH AGENCIES. PT STATES HIS WILL PICK HIM UP AND HAS PORTABLE O2 TO BRING. PT STATES FEELING IMPROVED AND READY TO GO HOME
== END 2018-07-20 12:08 | disposition home health service (06) | DRG 193 ==
LOC: M.ERS 14:00 → M.2W 15:40 → M.TBA-ER 15:40 → M.2W 17:07
PROVIDERS: Emergency Medicine Emergency Medical Services; Internal Medicine; ADMIT Internal Medicine
DX: J18.9 Pneumonia, unspecified organism (principal); I21.4 Non-ST elevation (NSTEMI) myocardial infarction; J96.21 Acute and chronic respiratory failure with hypoxia; I50.42 Chronic combined systolic (congestive) and diastolic (congestive) heart failure; J44.0 Chronic obstructive pulmonary disease with (acute) lower respiratory infection; J44.1 Chronic obstructive pulmonary disease with (acute) exacerbation; R65.10 Systemic inflammatory response syndrome (SIRS) of non-infectious origin without acute organ dysfunction; F41.1 Generalized anxiety disorder; I25.10 Atherosclerotic heart disease of native coronary artery without angina pectoris; N18.3 Chronic kidney disease, stage 3 (moderate); F32.9 Major depressive disorder, single episode, unspecified; E03.9 Hypothyroidism, unspecified; J30.2 Other seasonal allergic rhinitis; F17.210 Nicotine dependence, cigarettes, uncomplicated; Z79.82 Long term (current) use of aspirin; Z79.899 Other long term (current) drug therapy; Z99.81 Dependence on supplemental oxygen

== ENCOUNTER 2018-08-04 10:41 | Inpatient (IN) | payer OTHER ==
[~2018-08-04] VITALS: Ht 172.7 cm; Wt 75.3 kg
[~2018-08-04 10:41] MED LIST changes: +ASPIR 8181 MG PO; +DALIRESP500 MCG PO; +IPRAT-ALBUT 0.5-3 ML INH; +LEVAQUIN 750 M750 MG PO; +MUCINEX600 MG PO
[2018-08-04 10:43] VITALS: BP 112/70
[2018-08-04 11:32] LABS: HCO3 24.7 mmol/L (22.0-26.0); PCO2 36.2 mmHg (35.0-45.0); PO2 97.9 mmHg (75.0-100.0); pH 7.452 (7.340-7.450)
[2018-08-04 11:54] LABS: ABSOLUTE BASOPHILS 0.1 thou/uL (0.0-0.2); ABSOLUTE EOSINOPHILS 0.1 thou/uL (0.0-0.7); ABSOLUTE LYMPHOCYTES 1.1 thou/uL (0.8-5.3); ABSOLUTE MONOCYTES 0.7 thou/uL (0.0-1.2); ABSOLUTE NEUTROPHILS 7.3 thou/uL (1.6-8.1); HEMATOCRIT 31.6 % (42.0-52.0); HEMOGLOBIN 10.7 gm/dL (14.0-18.0); LYMPHOCYTES 11.9 %; MCH 31.3 pg (26.0-34.0); MCHC 33.9 g/dL (28.0-37.0); MCV 92.4 fL (80.0-100.0); MONOCYTES 7.6 %; MPV 7.3 fl. (7.2-11.1); NUCLEATED RBCS 0 /100WBC; PLATELET COUNT* 318 thou/uL (150-400); POLYS 78.5 %; RBC 3.42 mil/uL (4.50-6.00); RDW-CV 14.8 % (10.5-14.5); WBC 9.3 thou/uL (4.0-11.0)
[2018-08-04 12:10] LABS: APTT 22.9 Seconds (25.0-31.3)
[2018-08-04 12:11] LABS: ANION GAP 10 mmol/L (7-16); BUN 34 mg/dL (7-18); CALCIUM 8.6 mg/dL (8.5-10.1); CHLORIDE 101 mmol/L (98-107); CO2 26 mmol/L (21-32); CREATININE 1.6 mg/dL (0.6-1.3); GLUCOSE 97 mg/dL (70-99); POTASSIUM 3.7 mmol/L (3.5-5.1); SODIUM 137 mmol/L (136-145)
[2018-08-04 12:23] LABS: ALKALINE PHOSPHATASE 53 U/L (46-116); LIPASE 198 U/L (73-393); NT-PRO BRAIN NAT PEPTIDE 1088 pg/mL (<300); SGOT 22 U/L (15-37); SGPT 36 U/L (30-65); TOTAL BILIRUBIN 0.4 mg/dL (<0.1-1.0); TOTAL PROTEIN 6.2 g/dL (6.4-8.2); TROPONIN-I LEVEL <0.06 ng/mL (<0.06)
[2018-08-04] MEDS ORDERED: PREDNISONE50 MG PO (14:22)
[2018-08-04] MEDS ORDERED: AZITHROMYCIN 2250 MG PO (14:22)
[2018-08-04] MEDS ORDERED: PREDNISONE 10 M10 M1 PO (14:28)
--- NOTE | 2018-08-04 16:26 | EKG ---
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 : 1950 Requested By: Evy Gallagher Order Number: [id number] MD: Arben Bolaños Measurements Intervals [place] Rate: 96 P: 21 AR: 138 QRS: -8 QRSD: 91 T: 148 QT: 351 QTc: 444 Interpretive Statements Sinus rhythm Repol abnrm suggests ischemia, anterolateral Compared to ECG 07/16/2018 14:04:29 Possible ischemia now present Left ventricular hypertrophy no longer present Electronically Signed On 08-04-2018 16:26:38 [employer] by Arben Bolaños [email or web address] <ELECTRONICALLY SIGNED> By: Arben Bolaños MD, FACC 08/04/18 1626 1045 1045 Arben Bolaños MD, [facility] /EPI
[2018-08-04 16:49] VITALS: BP 101/71
[2018-08-04 16:55] VITALS: BP 125/75
[2018-08-04 20:00] VITALS: BP 126/66
[2018-08-05] VITALS: BP 122/69
[2018-08-05 04:00] VITALS: BP 145/78
[2018-08-05 08:30] VITALS: BP 169/87
[2018-08-05] MEDS ORDERED: CLARITIN10 MG PO (11:05)
[2018-08-05 12:15] VITALS: BP 138/96
[2018-08-05] MEDS ORDERED: ZYPREXA7.5 MG PO (13:52)
[2018-08-05 16:06] VITALS: BP 161/89
[2018-08-05 20:10] VITALS: BP 133/82
[2018-08-06] VITALS: BP 123/55
[2018-08-06 04:00] VITALS: BP 125/61
[2018-08-06 07:50] VITALS: BP 134/77
[2018-08-06 12:00] VITALS: BP 118/73
--- NOTE | 2018-08-06 14:46 | CON ---
[address] [address] CONSULTATION Name: ANDREW MCCARTY Room: [address] IN .R.#: [id number] Admission: 08/04/18 Attend Phys: Aleksey Berry Discharge: Date of : 50 Report #: [id number] THIS REPORT FOR: //name// CC: Em Lee DATE OF SERVICE: 08/05/2018 TYPE OF REPORT: Cardiology consultation. HISTORY OF PRESENT ILLNESS: This is a 67-year-old white male who I was asked to see in the hospital today after he complained of being short of breath. The patient has an extensive past medical history. He has a long history of smoking and COPD. He is on no home oxygen, uses bronchodilators. He was admitted in 2015 with a COPD exacerbation. He was admitted here in October with a COPD exacerbation. He notes he quit smoking 4 months ago. He was just admitted here in July with a COPD exacerbation and was sent home. Pain of care was recommended. The patient called the ambulance because of shortness of breath and brought back to the Emergency Room yesterday. He has had a fever but denied any significant cough or edema. He does have some chest tightness when he is short of breath. He apparently has fallen recently. PAST MEDICAL HISTORY: Significant for appendectomy, hemorrhoidectomy and hypertension. MEDICATIONS: Consists of DuoNeb treatments. He has been on a prednisone tapering dose, aspirin, lisinopril, furosemide, carvedilol and Paxil. ALLERGIES: He has no known drug allergies. FAMILY HISTORY: No history of heart disease. SOCIAL HISTORY: He is . He lives with his in [place], [place]. 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 He has a history of alcohol abuse, drinking up to 12-pack of beer a day and half pint of whiskey a day, went to Alcoholics Anonymous. He smoked 2-1/2 pack of cigarettes a day until 4 months ago. Denies illicit drug use. REVIEW OF SYSTEMS: He has had no history of stroke. He had a peptic ulcer in the past. No liver disease. He has had no kidney disease and no cancer. He does have a history of depression, has seen a psychiatrist in the past. PHYSICAL EXAMINATION: GENERAL: Revealed an elderly, cachectic-appearing male who appeared in mild respiratory distress. VITAL SIGNS: Blood pressure 140/80, pulse is 90 [place] [address] CONSULTATION Name: ANDREW MCCARTY Room: [address]#: [id number] Admission: 08/04/18 Attend Phys: Aleksey Berry Discharge: Date of : 50 Report #: [id number] HEENT: He was anicteric. Conjunctivae pink. Mucous members are dry. NECK: Veins do not appear distended. CHEST: Revealed distant breath sounds. CARDIOVASCULAR: Regular rate and rhythm without murmur. ABDOMEN: Soft. EXTREMITIES: Had no edema. Dorsalis pedis pulse 2+ bilaterally. SKIN: Cool and dry. NEUROLOGICAL: Nonfocal. LYMPHATIC: No adenopathy. RADIOLOGICAL DATA: ECG showed a sinus rhythm, nonspecific T-wave changes. His workup, he had an echocardiogram done last month when he was here that showed an ejection fraction of only 25% with left atrial enlargement. His x-rays showed portable chest x-ray, normal heart size, hyperinflated lung virgen, no pulmonary edema or hiatal hernia. He actually had a VQ scan of the lungs with low probability of pulmonary embolus. Venous duplex scan of his legs last month showed no DVT. LABORATORY WORK: Sodium 137 and creatinine 1.6, it has been as high as 1.9 in the past. Liver function studies are normal. Troponin 0.06. BNP 1088. Previous cholesterol was 252. LDL was 185. Previous TSH was 7.2. White blood cell count 9.3 and hemoglobin 10.7, it was 13.8 last month. IMPRESSION AND RECOMMENDATIONS: 1. Chronic obstructive pulmonary disease. 2. History of tobacco abuse. 3. History of alcohol abuse. 4. Dilated cardiomyopathy. No history of coronary artery disease. The patient has been on an angiotensin-converting enzyme inhibitor and beta john in the past. 5. Chronic kidney disease. <ELECTRONICALLY SIGNED> By: Steve Brown MD, FACC 08/06/18 1446 1740 [id number] Brown MD, FACC /nt
[2018-08-06 17:00] VITALS: BP 130/72
[2018-08-06 20:00] VITALS: BP 109/61
[2018-08-07] VITALS: BP 101/55
[2018-08-07 04:00] VITALS: BP 123/71
[2018-08-07 05:33] LABS: CALCIUM 8.4 mg/dL (8.5-10.1); CREATININE 1.6 mg/dL (0.6-1.3)
[2018-08-07 08:02] VITALS: BP 129/71
[2018-08-07 11:44] VITALS: BP 117/70
[2018-08-07 15:44] VITALS: BP 116/71
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
[2018-08-07 20:00] VITALS: BP 131/81
[2018-08-08 01:04] VITALS: BP 140/77
[2018-08-08 04:17] VITALS: BP 112/70
[2018-08-08 07:31] VITALS: BP 123/68
[2018-08-08 12:26] VITALS: BP 128/76
[2018-08-08 16:25] VITALS: BP 132/69
[2018-08-08 20:10] VITALS: BP 110/70
[2018-08-09] VITALS (7 sets, daily range): BP systolic 124–141; BP diastolic 69–86
[2018-08-09 05:30] LABS: HEMATOCRIT 21.2 % (42.0-52.0); HEMOGLOBIN 7.1 gm/dL (14.0-18.0); MCH 31.6 pg (26.0-34.0); MCHC 33.7 g/dL (28.0-37.0); MCV 93.6 fL (80.0-100.0); RBC 2.26 mil/uL (4.50-6.00); RDW-CV 15.3 % (10.5-14.5); WBC 11.1 thou/uL (4.0-11.0)
[2018-08-09 06:01] LABS: CALCIUM 8.4 mg/dL (8.5-10.1); CREATININE 1.3 mg/dL (0.6-1.3)
[2018-08-10] VITALS: BP 112/67
[2018-08-10 04:17] VITALS: BP 137/91
[2018-08-10 07:45] VITALS: BP 144/81
[2018-08-10 09:19] VITALS: BP 144/81
[2018-08-10] MEDS ORDERED: COREG6.25 MG PO (11:44)
[2018-08-10] MEDS ORDERED: BROVANA15 MCG/2 M INH (11:44)
[2018-08-10] MEDS ORDERED: PREDNISONE50 MG PO (11:44)
[2018-08-10] MEDS ORDERED: SPIRONOLACTONE25 MG PO (11:44)
[2018-08-10] MEDS ORDERED: LEVAQUIN 500 M500 M3 PO (11:44)
[2018-08-10] MEDS ORDERED: DALIRESP500 MCG PO (12:59)
== END 2018-08-10 13:33 | disposition hospice, home (50) | DRG 291 ==
LOC: M.ERS 10:41 → M.2W 15:21 → M.TBA-ER 15:21 → M.2W 17:01
PROVIDERS: Internal Medicine; Internal Medicine Cardiovascular Disease; Personal Emergency Response Attendant; ADMIT Internal Medicine
DX: I50.43 Acute on chronic combined systolic (congestive) and diastolic (congestive) heart failure (principal); J96.21 Acute and chronic respiratory failure with hypoxia; J44.1 Chronic obstructive pulmonary disease with (acute) exacerbation; R65.10 Systemic inflammatory response syndrome (SIRS) of non-infectious origin without acute organ dysfunction; I42.0 Dilated cardiomyopathy; E44.0 Moderate protein-calorie malnutrition; F32.9 Major depressive disorder, single episode, unspecified; F41.1 Generalized anxiety disorder; E03.9 Hypothyroidism, unspecified; I25.10 Atherosclerotic heart disease of native coronary artery without angina pectoris; F17.210 Nicotine dependence, cigarettes, uncomplicated; N18.9 Chronic kidney disease, unspecified; Z68.25 Body mass index [BMI] 25.0-25.9, adult; I25.2 Old myocardial infarction; Z90.49 Acquired absence of other specified parts of digestive tract; Z99.81 Dependence on supplemental oxygen; Z79.52 Long term (current) use of systemic steroids; Z79.82 Long term (current) use of aspirin; Z79.899 Other long term (current) drug therapy